=== PATIENT | female | born 1955 | race African-American/Black ===

== ENCOUNTER → 2016-12-31 | Outpatient (CLI) | payer OTHER ==
--- NOTE | 2016-12-31 17:51 | WOMENS IMAGING REPORT ---
EXAM DESCRIPTION: BILAT SCREENING MAMMO W/CAD COMPLETED DATE/TIME: 12/31/2016 9:19 am REASON FOR STUDY: Z12.31, ROUTINE SCREENING MAMMO Z12.31 ENCNTR SCREEN MAMMOGRAM FOR MALIGNANT NEOP LASM OF RAFIQ COMPARISON: 01/19/2014 and 12/31/2012. TECHNIQUE: Standard craniocaudal and mediolateral oblique views of each breast recorded using digita l acquisition. LIMITATIONS: None. FINDINGS: Findings present which are benign by mammographic criteria. No suspicious masses, calcifi cations or architectural distortion. Pertinent benign findings: Stable benign calcifications in the right breast and small nodule in the l eft breast. Read with the assistance of CAD. .[facility] - R2 Cenova Version 1.3 .[facility] - R2 Cenova Version 1.3 .[facility] - R2 Cenova Version 2.4 .[facility] - R2 Cenova Version 2.4 .[facility] - R2 Math Specialist Version 9.2 Benign mammographic findings may include one or more of the following: Smooth masses, popcorn/rim/co arse calcifications, asymmetries, post-procedure changes, and lesions with long-standing stability. IMPRESSION: BENIGN MAMMOGRAPHIC FINDINGS. BIRADS 2 BREAST DENSITY: b. There are scattered areas of fibroglandular density. BIRAD: 2 BENIGN FINDING(S) RECOMMENDATION: ROUTINE SCREENING COMMENT: The patient has been notified of the results by letter per SA requirements. Additional no tification policies are in place for contacting patient with suspicious or incomplete findings. Quality ID #[id number]: The [employer] recommends an annual screening mammogram for women aged 40 years or over. This facility utilizes a reminder system to ensure that all patients receive reminder letters, and/or direct phone calls for appointments. This includes reminders for routine scr eening mammograms, diagnostic mammograms, or other Breast Imaging Interventions when appropriate. Th is patient will be placed in the appropriate reminder system. The [employer] (ACR) has developed recommendations for screening MRI of the breast s in certain patient populations, to be used in conjunction with mammography. Breast MRI surveillanc e may be appropriate for women with more than 20% lifetime risk of developing breast cancer as deter mined by genetic testing, significant family history of the disease, or history of mantle radiation f or Hodgkins Disease. ACR Practice Guidelines 2008. TECHNICAL DOCUMENTATION: FINDING NUMBER: (1) ASSESSMENT: (1) JOB ID: [id number] [facility] [employer]- All Rights Reserved
== END ==
LOC: WI 08:30
PROVIDERS: ATTEND Nurse Practitioner Family
DX: Z12.31 Encounter for screening mammogram for malignant neoplasm of breast (principal)
CPT/HCPCS: 77067; G0202

== ENCOUNTER 2017-07-03 18:16 | Emergency (ER) | payer OTHER ==
--- NOTE | 2017-07-03 19:57 | ER Document Report ---
ED Medical Screen (RME) - General Chief Complaint: Knee Pain Stated Complaint: LEFT FOOT AND KNEE PAIN Time Seen by Provider: 07/03/17 19:49 Notes: 61 yo female c/o pain and swelling to both lower legs x 3 days, worse in left foot. aggravated with prolonged standing or walking. "achy" pain. works in daycare. no shortness of breath, no chest pain. + recent travel to [place]. [address] about 3 wks ago. no fever. pt went to [facility] and was sent to ED for possible DVT. + hx/o HTN. no DM, no CHF TRAVEL OUTSIDE OF THE [place] IN LAST 30 DAYS: No - Related Data Allergies/Adverse Reactions: No Known Allergies Allergy (Unverified 07/03/17 18:26) Physical Exam - Vital signs Vitals: Temp Pulse Resp BP Pulse Ox 97.8 F 80 17 182/88 H 99 07/03/17 18:39 07/03/17 18:39 07/03/17 18:39 07/03/17 18:39 07/03/17 18:39 Course - Vital Signs Vital signs: Temp Pulse Resp BP Pulse Ox 97.8 F 80 17 182/88 H 99 07/03/17 18:39 07/03/17 18:39 07/03/17 18:39 07/03/17 18:39 07/03/17 18:39
--- NOTE | 2017-07-03 22:31 | ER Document Report ---
ED General - General Chief Complaint: Knee Pain Stated Complaint: LEFT FOOT AND KNEE PAIN Time Seen by Provider: 07/03/17 19:49 Notes: Patient is a pleasant 61-year-old female presents with complaint of swelling in both legs. She says is little worse and her right leg compared to her left. She also says she has pain that radiates from her back down the back of her leg. Patient denies any difficulty breathing. She is not on any diuretic type medications. Venous Doppler was ordered in triage and was negative for DVT. Patient was never had DVTs or PEs in the past. She denies recent fevers or infections. No trauma to her legs. 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 No other complaints at this time. TRAVEL OUTSIDE OF THE [place] IN LAST 30 DAYS: No - Related Data Allergies/Adverse Reactions: No Known Allergies Allergy (Unverified 07/03/17 18:26) Past Medical History - Social History Smoking Status: Never Smoker Frequency of alcohol use: None Drug Abuse: None Family History: Reviewed & Not Pertinent Patient has suicidal ideation: No Patient has homicidal ideation: No Renal/ Medical History: Denies: Hx Peritoneal Dialysis Review of Systems - Review of Systems Notes: My Normal Review Basic REVIEW OF SYSTEMS: CONSTITUTIONAL : Denies fever, chills, or sweats. Denies recent illness. CARDIOVASCULAR: Denies chest pain. RESPIRATORY: Denies cough, cold, or chest congestion. Denies shortness of breath, difficulty breathing, or wheezing. GASTROINTESTINAL: Denies abdominal pain. Denies nausea, vomiting, or diarrhea. GENITOURINARY: Denies difficulty urinating, painful urination, burning, frequency, or blood in urine. MUSCULOSKELETAL: Lower extremity edema SKIN: Denies rash or skin lesions. NEUROLOGICAL: Denies altered mental status or loss of consciousness. Denies headache. Denies weakness or paralysis or loss of use of either side. Denies problems with gait or speech. Denies sensory or motor loss. ALL OTHER SYSTEMS REVIEWED AND NEGATIVE. Physical Exam - Vital signs Vitals: Temp Pulse Resp BP Pulse Ox 97.8 F 80 17 182/88 H 99 07/03/17 18:39 07/03/17 18:39 07/03/17 18:39 07/03/17 18:39 07/03/17 18:39 - Notes Notes: General Appearance: Well nourished, alert, cooperative, no acute distress, no obvious discomfort. Vitals: reviewed, See vital signs table. Head: no swelling or tenderness to the head Eyes: PERRL, EOMI, Conjuctiva clear Mouth: No decreasd moisture Lungs: No wheezing, No rales, No rhonci, No accessory muscle use, good air exchange bilaterally. Heart: Normal rate, Regular rythm, No murmur, no rub Abdomen: Normal BS, soft, No rigidity, No abdominal tenderness, No guarding, no rebound, no abdominal masses, no organomegaly Extremities: strength 5/5 in all extremities, good pulses in all extremities, no swelling or tenderness in the extremities, 1+ bilateral lower extremity edema. Skin: warm, dry, appropriate color, no rash Neuro: speech clear, oriented x 3, normal affect, responds appropriately to questions. Course - Re-evaluation Re-evalutation: 07/04/17 06:26 Patient has bilateral lower extremity edema which appears to be most likely venous insufficiency. His mild at this point. Informed her that keep her legs elevated nighttime as well as compression hose this will help. I will place her on 20 mg of Lasix to see if this helps get rid of her fluid. Informed that she is to follow-up with her primary care doctor within a week for reevaluation and for check of her kidney function potassium level. Patient encouraged to return to ER if she is worsening swelling, difficulty breathing, or feels unwell. Patient agrees with plan will be discharged home. Dictation of this chart was performed using voice recognition software; therefore, there may be some unintended grammatical errors. 07/04/17 06:27 - Vital Signs Vital signs: Temp Pulse Resp BP Pulse Ox 98 F 69 18 172/76 H 99 07/03/17 23:07 07/03/17 23:07 07/03/17 23:07 07/03/17 23:07 07/03/17 23:07 Discharge - Discharge Clinical Impression: Lower extremity edema Condition: Good Disposition: HOME, SELF-CARE Additional Instructions: Please keep your feet elevated when you are sitting down. Please go to any pharmacy or medical supply store and ask for compression stockings. Please follow up with your doctor within 1 week for reevaluation and to have your potassium level checked. Please return to the ER immediately if you have difficulty breathing, worsening swelling in your legs, or if you feel unwell. Prescriptions: Furosemide [Lasix 20 mg Tablet] 20 mg PO QAM #20 tablet Referrals: VICKI MURPHY, CRAYON SAWYER-C [Primary Care Provider] - Follow up as needed
--- NOTE | 2017-07-03 22:44 | RADIOLOGY REPORT (SQ) ---
EXAM DESCRIPTION: VENOUS UNILATERAL LOWER COMPLETED DATE/TIME: 07/03/2017 9:58 pm REASON FOR STUDY: left lower leg swelling COMPARISON: None. TECHNIQUE: Dynamic and static june scale and color images acquired of the left leg venous system. Se lected spectral images acquired with additional compression and augmentation maneuvers. The contralat eral common femoral vein and saphenofemoral junction were also imaged. Images stored on PACS. LIMITATIONS: None. FINDINGS: COMMON FEMORAL: Normal phasicity, compression and augmentation. No visualized echogenic ma terial on june scale. No defects on color images. FEMORAL: Normal compression and augmentation. No visualized echogenic material on june scale. No defe cts on color images. POPLITEAL: Normal compression, augmentation. No visualized echogenic material on june scale. No defec ts on color images. CALF VESSELS: Normal compression, augmentation. No visualized echogenic material on june scale. No de fects on color images. GSV and SSV: Normal compression, augmentation. No visualized echogenic material on june scale. No def ects on color images. ANY DEEP VENOUS INSUFFICIENCY: Not evaluated. ANY EVIDENCE OF POPLITEAL CYST: Yes, 1.8 cm. OTHER: No other significant finding. CONTRALATERAL COMMON FEMORAL VEIN AND SAPHENOFEMORAL JUNCTION: Normal phasicity, compression and augmentation. No visualized echogenic material on june scale. No de fects on color images. IMPRESSION: NO EVIDENCE DVT OR SVT IN THE LEFT LEG. TECHNICAL DOCUMENTATION: JOB ID: [id number] [employer]- All Rights Reserved
[2017-07-03 23:08] VITALS: BP 172/76
== END 2017-07-03 23:07 | disposition home or self-care (01) ==
LOC: ER 18:16
DX: R60.0 Localized edema (principal); M25.562 Pain in left knee; M79.672 Pain in left foot
CPT/HCPCS: 36415; 83880; 93971; 99284